=== PATIENT | male | born 1960 | race Caucasian/White ===

== ENCOUNTER 2022-05-19 05:25 | Day surgery (SDC) | payer OTHER ==
[~2022-05-19] VITALS: Ht 185.4 cm; Wt 105.9 kg
[~2022-05-19 05:25] MED LIST: ACETAMINOPHEN500 MG PO; IBUPROFEN600 MG PO; OXYCODON-ACETA1 EAC2 PO
[2022-05-19 05:48] VITALS: BP 120/82
--- NOTE | 2022-05-19 09:21 | NUR ---
05/19/22 0921 Yissel Hicks 0916 PATIENT ARRIVES TO PACU UNRESPONSIVE TO PAIN. ORAL AIRWAY IN PLACE. OCCASIONAL CHIN LIFT. RESP EVEN AND UNLABORED WITH INTERVENTION. MASK AT 6 LITERS.
[2022-05-19 09:54] VITALS: BP 128/88
--- NOTE | 2022-05-19 09:56 | NUR ---
EITAN 0955: PT IS BACK TO DS FROM PACU. HIS IS AT THE BEDSIDE. CALL LIGHT WITHIN REACH. HE IS TOLERATING SIPS OF WATER. DENIES WANTING ANYTHING TO SNACK ON AT THIS TIME. HE REPORTS FEELING LIKE HE NEEDS TO VOID, BUT CAN'T; HE IS EDUCATED THAT THE STENT CAN CAUSE THAT SENSATION. NO ADDITIONAL NEEDS OR CONCERNS AT THIS TIME. DC CRITERIA REVIEWED AGAIN WITH PT AND .
[2022-05-19 10:54] VITALS: BP 129/74
--- NOTE | 2022-05-19 11:17 | NUR ---
LE 1100: PT IS TOLERATING WATER AND JELLO. HE INDICATES THAT HE WOULD LIKE TO GET UP AND GO HOME. HE AND HIS ARE GIVEN WRITTEN AND VERBAL DC INSTRUCTIONS. THEY BOTH VERABLIZE UNDERSTANDING. QUESTIONS ARE ASKED ANSWERED. HE IS EDUCATED ON HOW TO BEST DRESS HIMSELF AND TO OPEN HIS CURTAIN WHEN HE IS READY. LE 1115: PT IS GIVE PAIN PILL FOR THE ROAD HOME. HE IS TAKEN TO PERSONAL VEHICLE VIA , WHERE HE TRANSFERS HIMSELF WITHOUT ISSUE.
--- NOTE | 2022-05-23 16:10 | OR ---
[facility] [address] [facility] [place], [place] [address] Signed DATE OF OPERATION: 05/19/2022 SURGEON: Luz Dodd MD PREOPERATIVE DIAGNOSES: 1. 8 mm right midureteral calculus with associated right hydronephrosis. 2. 7 mm lower pole right renal calculus. POSTOPERATIVE DIAGNOSES: 1. 8 mm right midureteral calculus with associated right hydronephrosis. 2. 7 mm lower pole right renal calculus. NAMES OF PROCEDURES: 1. Diagnostic cystoscopy with right retrograde pyelogram. 2. Right flexible nephroureteroscopy with laser lithotripsy and basket extraction of stone fragments. 3. Insertion of a 6 x 28 cm double-J ureteral stent into the right collecting system. ANESTHESIA: General. ESTIMATED BLOOD LOSS: None. COMPLICATIONS: None. DRAINS: A 6 x 28 cm double-J ureteral stent inserted into the right kidney. SPECIMENS: Fragments of right renal calculus and the 8 mm right ureteral calculus, both sent to the lab for stone analysis. INDICATIONS FOR PROCEDURE: Mr. Pineda is a very pleasant 61-year-old gentleman, who recently presented to me upon referral from the emergency department for management of an 8 mm obstructing right midureteral calculus along with a nonobstructing 7 mm lower pole right renal calculus. He was experiencing active flank pain upon presentation to the clinic, however, he denied any active fevers or chills. He was able to tolerate p.o. intake. His ureteral Electronically Signed By: LUZ DODD MD 05/23/22 1610 PATIENT NAME: RATNA PINEDA OPERATIVE REPORT DATE OF : 62 REPORT #: [id number] PHYSICIAN: LUZ DODD MD PCP: XENIA SOLIZ MD REPORT IS CONFIDENTIAL AND NOT TO BE RELEASED WITHOUT AUTHORIZATION [facility] [address] [place], [place] [address] Signed stone was noted to be rather large at 8 mm. He requested surgical extraction of the stone. After a long discussion of the risks and benefits of ureteroscopy, he elected to proceed. OPERATIVE FINDINGS: 1. On cystoscopy, there was no evidence of any suspicious masses, lesions, or stones. Bilateral ureteral orifices are in their normal anatomic location. There is a small stone present within the bladder. This appears to be a recently passed 8 mm stone that was likely the formal right midureteral calculus. This was extracted from the patient's bladder. 2. Right retrograde pyelogram revealed a filling defect in the lower pole of the right kidney consistent with his known lower pole right renal calculus. The kidney otherwise appears normal with no evidence of any calyceal blunting or dilation of the renal pelvis. 3. Flexible nephroscopy was performed and the stone was located in the lower pole of the right kidney. The infundibulum was mildly stenotic, however, I was able to fragment the stone in the lower pole using a holmium laser at 8 and 0.8 settings with a 270 micron fiber. The fragments of the stone were then extracted from the lower pole of the right kidney. 4. At the end of the procedure, a 6 x 28 cm double-J ureteral stent was inserted into the patient's right kidney without difficulty. DESCRIPTION OF PROCEDURE: After informed consent was obtained, the patient was taken back to the operating room. [facility] was [facility] to the operating room table, where general anesthesia was induced. He was placed in the dorsal lithotomy position and his genitalia were prepped and draped in a standard sterile fashion. Using a 30-degree lens on a 22.5-Austrian introducer, rigid cystoscope was inserted through his urethra and into his bladder under direct visualization. Panendoscopic views of the bladder were then obtained. Please see above findings. It was at this time that I noticed an approximately 8 mm stone within the bladder. This was extracted using the cystoscope and placed in a specimen cup. I advanced a cone-tipped catheter to the right ureteral orifice and a right retrograde pyelogram was performed. There was no filling defect present within the right ureter consistent with successful passage of the 8 mm stone. There was a filling defect in the lower pole of the right kidney consistent with the known 7 mm right lower pole renal calculus. The remainder of the retrograde pyelogram was normal. I cannulated the ureter with a 0.035 Sensor wire without difficulty. With the Sensor wire in place, I passed an 11/13 ureteral access sheath over the Sensor wire and into the right collecting system. The sheath passed without difficulty. Retrograde pyelogram was performed through the ureteral access sheath, which confirmed proper placement of the sheath. I then advanced a flexible ureteroscope through the sheath into the proximal ureter and right renal pelvis. A complete diagnostic nephroscopy was Electronically Signed By: LUZ DODD MD 05/23/22 0536 PATIENT NAME: RATNA PINEDA OPERATIVE REPORT DATE OF : 62 REPORT #: [id number] PHYSICIAN: LUZ DODD MD PCP: XENIA SOLIZ MD REPORT IS CONFIDENTIAL AND NOT TO BE RELEASED WITHOUT AUTHORIZATION [address] [address] Signed performed. Please see above findings. I located the stone in the lower pole of the right kidney. The infundibulum was stenotic, however, I was still successful in fragmenting the stone using a holmium laser and a 270 micron fiber at 8 and 0.8 settings. The stone did fragment relatively easily. 100% of the stone fragments were successfully extracted from the lower pole of the right kidney. Once I was satisfied that the entire stone had been extracted, I evaluated the rest of the kidney and did not see any significant stones that required extraction, however, there were a couple of calcifications present on a couple of the renal papillae. None of these could easily be extracted from the papilla itself. I removed the flexible ureteroscope and then passed a Sensor wire through the sheath and into the right renal pelvis. The ureteral access sheath was then removed fully intact. Over the wire, I passed a 6 x 28 cm double-J ureteral stent into the right collecting system under direct visualization. Once I pulled the wire, an adequate proximal coil was seen within the right renal pelvis and a distal coil was noted on cystoscopy. The ureteral stent was passed with a string attached to it to be removed by the patient on a later date. With the stent in place, I drained the patient's bladder and then removed the cystoscope. The procedure was then terminated. The stent string was secured to the patient's penis at the end of the procedure. The patient will now be taken to the postanesthesia care unit in stable condition. DISPOSITION: I discussed the details of today's procedure with the patient's and answered all of her questions. The patient will remove the stent using the string attached in approximately five days. He was sent home with oral antibiotics along with oxycodone 5 mg one tablet p.o. q.4 to 6 hours p.r.n. pain, dispense #20. He will be scheduled to return to clinic in approximately 4 to 6 weeks for postoperative evaluation. MD LAUREN Siegel/STEPHANIE /[id number] Electronically Signed By: LUZ DODD MD 05/23/22 1610 PATIENT NAME: RATNA PINEDA OPERATIVE REPORT DATE OF : 62 REPORT #: [id number] PHYSICIAN: LUZ DODD MD PCP: XENIA SOLIZ MD REPORT IS CONFIDENTIAL AND NOT TO BE RELEASED WITHOUT AUTHORIZATION [facility] [address] [place] [address] [place] [address] Signed Copies: ~ Electronically Signed By: LUZ DODD MD 05/23/22 1610 PATIENT NAME: RATNA PINEDA OPERATIVE REPORT DATE OF : 62 REPORT #: [id number] PHYSICIAN: LUZ DODD MD PCP: XENIA SOLIZ MD REPORT IS CONFIDENTIAL AND NOT TO BE RELEASED WITHOUT AUTHORIZATION
== END 2022-05-19 11:15 | disposition home or self-care (01) ==
LOC: DS 05:25 → OPS 05:25 → DS 07:30 → OPS 07:30
PROVIDERS: ATTEND Urology
PROC: 0T768DZ Dilation of Right Ureter with Intraluminal Device, Via Natural or Artificial Opening Endoscopic (ICD-10-PCS; 2022-05-19)
PROC: 0TC08ZZ Extirpation of Matter from Right Kidney, Via Natural or Artificial Opening Endoscopic (ICD-10-PCS; principal; 2022-05-19 07:30)
PROC: 0TC68ZZ Extirpation of Matter from Right Ureter, Via Natural or Artificial Opening Endoscopic (ICD-10-PCS; 2022-05-19 07:30)
DX: N13.2 Hydronephrosis with renal and ureteral calculous obstruction (principal)
CPT/HCPCS: 00862; 74420; 74450; 82365; C1769; C2617; J0690; J1100; J1885; J2250; J2405; J2704; J7121; Q9958

== ENCOUNTER 2023-01-09 11:26 | Day surgery (SDC) | payer OTHER ==
[~2023-01-09] VITALS: Ht 185.4 cm; Wt 104.5 kg
[2023-01-09 11:46] VITALS: BP 123/83
--- NOTE | 2023-01-09 14:29 | NUR ---
01/09/23 1429 Shima Amanda 1403 PT ARRIVED IN PACU SLEEPY. ABD SOFT. 1415 DR AT BEDSIDE. ALL QUESTIONS ANSWERED. 1425 SITTING UP IN BED SIPPING ON JUICE. 1428 C/O NAUSEA.
[2023-01-09 14:50] VITALS: BP 124/77
--- NOTE | 2023-01-09 19:06 | OR ---
[facility] [address] [place], [place] [address] Signed DATE OF OPERATION: 01/09/2023 SURGEON: Maury Cr MD PREOPERATIVE DIAGNOSIS: Colon screening. POSTOPERATIVE DIAGNOSIS: Polyp, right colon, minimal diverticular changes, sigmoid. PROCEDURE: Total colonoscopy to cecum with cold morcellation polypectomy x1. ANESTHESIA: Intravenous sedation, fentanyl 100 mcg and Versed 5 mg. INDICATION: This 62-year-old white man is patient of Dr. Xenia Hernandez and underwent colonoscopy 10 years ago in [facility], which was said to be negative. He has no current symptoms of bleeding, diarrhea, or constipation and no family history of colon cancer. He is here for colon screening. He understands the risk of bleeding, infection, and perforation. FINDINGS: The prep was excellent. Complete colonoscopy was undertaken of the cecum. There was one small adenomatous polyp in the mid ascending colon which was excised with cold morcellation technique. The remaining colon was normal except for a few scattered diverticula of the left colon. DESCRIPTION OF PROCEDURE: The patient was brought to the endoscopy suite and placed in lateral decubitus position, given intravenous sedation to the point of slurred speech and nystagmus. Full cardiopulmonary monitoring was maintained. Digital rectal exam was performed which was normal and an Olympus video colonoscope passed in the rectum and manipulated throughout the colon ultimately intubating the right colon. Visualization of the cecum was not forthcoming initially, therefore biopsy forceps was used to elevate the mucosa of the cecum. This allowed for advancement of the scope ultimately to the cecum fully. Good visualization of the cecum was undertaken. The scope was then withdrawn and in the mid ascending colon, there was a Electronically Signed By: MAURY CR MD 01/09/23 1906 PATIENT NAME: RATNA MARTIN OPERATIVE REPORT DATE OF : 62 REPORT #: [id number] PHYSICIAN: MAURY CR MD PCP: XENIA HERNANDEZ MD REPORT IS CONFIDENTIAL AND NOT TO BE RELEASED WITHOUT AUTHORIZATION [facility] [address] [facility] [place], [place] [address] Signed small adenomatous appearing polyp. This was excised with cold morcellation technique. Further withdrawal showed no sign of other abnormality other than a few scattered diverticula of the sigmoid. Retroflexed view of the rectum was normal. Scope was removed. The patient was taken to the recovery room in good condition. CONCLUDING DIAGNOSIS: Small polyp of right colon. PLAN: Recommend repeat colonoscopy in 2-3 years, sooner if clinically indicated. He will return to the ongoing care of Dr. Xenia Hernandez otherwise. MD JOHN Fountain/STEPHANIE /[id number] cc: Xenia Hernandez MD Copies: XENIA HERNANDEZ MD ~ Electronically Signed By: MAURY CR MD 01/09/23 1906 PATIENT NAME: RATNA MARTIN OPERATIVE REPORT DATE OF : 62 REPORT #: [id number] PHYSICIAN: MAURY CR MD PCP: XENIA HERNANDEZ MD REPORT IS CONFIDENTIAL AND NOT TO BE RELEASED WITHOUT AUTHORIZATION
--- NOTE | 2023-01-12 15:49 | PATH ---
[facility] [address] [place], [place] [address] Signed SPECIMEN(S): A ASCENDING/RIGHT COLON POLYP SPECIMEN SOURCE: A. ASCENDING/RIGHT COLON POLYP CLINICAL HISTORY: Pre-op: Screening colonoscopy. Post-op: Polyp x1, diverticulosis. FINAL PATHOLOGIC DIAGNOSIS: Ascending/right colon polyp: - Tubular adenoma (one fragment). JVR:eneida MICROSCOPIC EXAMINATION: Histologic sections of all submitted blocks are examined by light microscopy. These findings, together with the gross examination, support the pathologic diagnosis. GROSS DESCRIPTION: The specimen, labeled and designated "Pranger, ascending colon polyp," is received in formalin and consists of four anderson soft tissue fragments, ranging from 0.1 to 0.2 cm. Entirely submitted in (A1). JS (under the direct supervision of a pathologist) The Gross Description was prepared using a voice recognition system. The report was reviewed for accuracy; however, sound-alike word errors, addition and/or deletions may occur. If there is any question about this report, please contact Client Services. ADDITIONAL NOTES: Immunohistochemical and/or in situ hybridization studies if performed in this case included appropriate positive controls that reacted as expected. This test was developed and its performance characteristics determined by [facility]. It has not been cleared or approved by the U.S. Food and Drug Administration. The FDA has determined that such clearance or approval is not necessary. This test is used for clinical purposes. It should not be regarded as investigational or for research. [facility] is certified under the Clinical Laboratory Improvement Amendments of 1988 (CLIA) as qualified to perform high complexity clinical laboratory testing. PATIENT NAME: RATNA MARTIN PATHOLOGY DATE OF : 62 REPORT #: [id number] PHYSICIAN: CITLALLI MALIN PCP: XENIA SOLIZ MD REPORT IS CONFIDENTIAL AND NOT TO BE RELEASED WITHOUT AUTHORIZATION [facility] [address] [place], [place] [address] Signed PERFORMING LABORATORY: Technical component was performed by [facility], [address] [place] [address] (CLIA# [id number]). Professional interpretation was performed by [facility], [address] [place] [id number] (CLIA#: [id number]). Diagnostician: Brandon Morales MD Pathologist Electronically Signed 01/12/2023 Copies: ~ PATIENT NAME: RATNA MARTIN PATHOLOGY DATE OF : 62 REPORT #: [id number] PHYSICIAN: CITLALLI MALIN PCP: XENIA SOLIZ MD REPORT IS CONFIDENTIAL AND NOT TO BE RELEASED WITHOUT AUTHORIZATION
== END 2023-01-09 14:53 | disposition home or self-care (01) ==
LOC: OPS 11:26 → DS 11:26 → OPS 13:15 → DS 13:15 → OPS 14:53
PROVIDERS: ATTEND Surgery
PROC: 0DBK8ZX Excision of Ascending Colon, Via Natural or Artificial Opening Endoscopic, Diagnostic (ICD-10-PCS; principal; 2023-01-09 13:15)
DX: Z12.11 Encounter for screening for malignant neoplasm of colon (principal); D12.2 Benign neoplasm of ascending colon; K57.30 Diverticulosis of large intestine without perforation or abscess without bleeding; N50.0 Atrophy of testis; K40.90 Unilateral inguinal hernia, without obstruction or gangrene, not specified as recurrent; K21.9 Gastro-esophageal reflux disease without esophagitis
CPT/HCPCS: 99153; G0500; J2250; J3010